=== PATIENT | female | born 1995 | race African-American/Black ===

== ENCOUNTER 2018-01-21 23:22 | Emergency (ER) | payer BC, OTHER, SELFPAY | END 2018-01-22 01:06 | disposition home or self-care (01) | LOC: ERS 23:22 | DX: L30.9 Dermatitis, unspecified (principal) | CPT/HCPCS: 99282 ==

== ENCOUNTER 2018-01-26 10:58 | Emergency (ER) | payer SELFPAY | END 2018-01-26 12:21 | disposition home or self-care (01) | LOC: ERS 10:58 | DX: R21 Rash and other nonspecific skin eruption (principal); Z79.899 Other long term (current) drug therapy | CPT/HCPCS: 99282 ==

== ENCOUNTER 2018-06-09 13:56 | Emergency (ER) | payer SELFPAY ==
[2018-06-09] MEDS ORDERED: Proparacaine 0.5% Opth 15 ML BOT ONE (14:53)
[2018-06-09] MEDS ORDERED: Fluorescein Opthalmic Strip ONE (14:53)
== END 2018-06-09 15:24 | disposition home or self-care (01) ==
LOC: SCSER 13:56
DX: H10.31 Unspecified acute conjunctivitis, right eye (principal); M26.623 Arthralgia of bilateral temporomandibular joint
CPT/HCPCS: 99282

== ENCOUNTER 2019-04-19 18:59 | Emergency (ER) | payer OTHER, SELFPAY ==
[2019-04-19] MEDS ORDERED: HYDROcodone/Acetaminophen 5/325 mg Tablet ONE (21:35)
== END 2019-04-19 21:45 | disposition home or self-care (01) ==
LOC: ERS 18:59
DX: K02.9 Dental caries, unspecified (principal); K05.10 Chronic gingivitis, plaque induced
CPT/HCPCS: 99282

== ENCOUNTER 2019-05-04 19:15 | Inpatient (IN) | payer OTHER ==
--- NOTE | 2019-05-04 17:35 | PDOC.FPROB ---
FMR OB H&P: HPI - History of Present Illness Chief Complaint: eIOL Indentification: 23yo @39.1wks by 20.6wk US History of Present Illness: 23yo @39wks by 20.6wk US presents for eIOL. Patient doing well today. Reports that she feels baby move, denies contractions , vaginal bleeding, gushes of fluid. Denies headaches, vision changes, cp, sob, abdominal pain. Desires epidural during this delivery. Also states that she desires PO cytotec induction rather than vaginal, due to her being uncomfortable with cervical checks. Discussed that po cytotec may not be as effective as vaginal, and patient reports that her first two deliveries were inductions and she had po cytotec for both of those. Patient's last two deliveries were reportedly GBS positive. As current GBS status unknown, discussed with patient the risks and benefits of antibiotics, and patient decided that she would like to be treated with antibiotics during this delivery. Primary Care Physician: Lala Carrion MD PGY-2 FMR OB H&P: Current - Care : 3 Para: 2001 Gestational age: 39.1 Due date: 05/11/19 Dating Criteria: 20.6wk US Total weight gain: 16lb - OB Labs Blood type: B RH: positive Antibody Screen: negative HIV: negative RPR: negative Rubella: immune Gonorrhea: negative Chlamydia: negative Pap Smear: NILM 01/2019 1 hour gtt: 134 A1c: 5.1% GBS: unknown (collected 05/04/19) H&H: 10.3/30.8 - Anatomy Survey Anatomy survey: 20.3wks - Additional Ultrasound Additional: [place] 41.7% on 30wk growth scan FMR OB H&P: History - Past Medical History PMH: Migraines - OB History OB History: July 2017- via induction June 2016- via induction - HOME SPECIALIST History HOME SPECIALIST History: NILM 01/2019. - Surgical History Sx History: Tonsillectomy - Social History Social History: Denies smoking, drinking etoh, using drugs. FMR OB H&P: Medications - Current Home Medications: Medication Instructions Recorded Confirmed Type Vitamin 1 tab PO DAILY 05/05/19 05/05/19 History Allergies/Adverse Reactions: Allergies Allergy/AdvReac Type Severity Reaction Status Date / Time No Known Drug Allergies Allergy Verified 05/15/16 23:10 FMR OB H&P: ROS - Review of Systems General: denies: fever/chills, weight/appetite/sleep changes Eyes: denies: eye pain, vision changes ENT: denies: nasal congestion, sore throat Cardiovascular: denies: chest pain, edema Respiratory: denies: cough, shortness of breath Gastrointestinal: denies: abdominal pain, vomiting, diarrhea Genitourinary (Female): denies: vaginal discharge, vaginal bleeding Musculoskeletal: denies: tenderness, swelling Neurologic: denies: syncope, seizures Integumentary: denies: rash, discoloration FMR OB H&P: Vital Signs - Maternal Vital signs: BP: 122/67 Pulse: 87 - Heart Tones Baseline: 145 Variability: moderate Acceleration: absent Deceleration: absent Category: category 1 [place] contractions every: intermittent FMR OB H&P: Physical Exam - Physical Exam General: NAD, awake, alert and oriented HEENT: MMM, no scleral icterus Neck: supple, FROM Chest: non-tender to palpation, no lesions Heart: RRR, normal S1/S2 General: CTAB, no respiratory distress Abdomen: soft, gravid, fundus(cm), non-tender, bowel sound present Musculoskeletal: pulses present, FROM in all four extremities Neurological: sensation to pain,touch and proprioception grossly normal, no focal deficit Skin: no rash, good tugor Lymphatic: no unusual bruising or bleeding, no purpura Psychiatric: intact recent and remote memory, good judgement and insight - Pelvic Exam Vulva: normal hair distribution, no blood SVE: closed/thick/high FMR OB H&P: A/P - Problem List (1) Current Visit: Yes Status: Acute Qualifiers: Weeks of gestation: 39 weeks Qualified Code(s): Z3A.39 - 39 weeks gestation of (2) Anemia affecting Current Visit: Yes Status: Acute Code(s): O99.019 - ANEMIA COMPLICATING , UNSPECIFIED TRIMESTER Disposition: 23yo @39wks by 20.6wk US presents for eIOL. sIUP - SVE closed/thick/high - FHTs: reactive strip, baseline 145 - VSS - U/S demonstrates baby has cephalic presentation - IOL with PO cytotec per patient preference - GBS abx ppx closer to active labor - Continue serial cervical checks Anemia of Pregnacy - Continue iron Dispo: admitted to L&D for eIOL at 39.1wga Discussion: Date/Time: 05/04/19 4844 This H&P was discussed with [Regulo] who agree with the above documentation and plan. Addendum - Attending - Attending Attestation Date/Time: 05/05/19 9993 I personally evaluated the patient and discussed the management with Dr. Carrion. I agree with the History, Examination, Assessment and Plan documented above with any addition or exceptions noted below.
[~2019-05-04 19:15] MED LIST: Lidocaine 1% (PF) 30 ML VIAL SC PRN; NS / Oxytocin 40 units/1000ml 1,000 ML IV PRN; Ondansetron PF 4 MG/2 ML Vial IVP PRN; Promethazine HCl 25 MG/ML VIAL IM PRN; hydrALAZINE 20 MG/ML VIAL SLOW IVP PRN
[2019-05-05] MEDS ORDERED: Bupivacaine HCl 0.5%/Epinephrine 1:200,000/PF 30 ml Vial ONE (09:00)
[2019-05-05] MEDS ORDERED: Lidocaine 2% MPF 10 ML AMP (For Epidural Use) ONE (09:00)
[2019-05-05 10:38] VITALS: BMI 36.7
[2019-05-05] MEDS: Lactated Ringer's 1,000 ML IV SCH ×2 (10:45→12:44)
[2019-05-05 10:55] LABS: Hemoglobin 10.7 g/dL (12.0-16.0); Mean Corpuscular HGB CONC 34.5 g/dL (32.0-36.0); Mean Corpuscular Hemoglobin 30.2 pg (27.0-31.0); Mean Corpuscular Volume 87.5 fL (78.0-98.0); Mean Platelet Volume 9.3 fL (7.4-10.4); Platelet Count 198 thou/uL (130-400); RBC Distribution Width 12.5 % (11.5-14.5); Red Blood Cell (RBC) Count 3.55 mill/uL (4.20-5.40); White Blood Cell (WBC) Count 5.3 thou/uL (4.8-10.8)
[2019-05-05 11:41] LABS: Hep B Surf Ag Non-Reactive S/CO (NonReactive); Syphilis Antibody Nonreactive (Nonreactive)
[2019-05-05] MEDS: Misoprostol 100 MCG TAB PO SCH (13:04)
[2019-05-05] MEDS: Misoprostol 100 MCG TAB VAG SCH (16:29)
[2019-05-05] MEDS ORDERED: Butorphanol Tartrate 1 MG/ML VIAL ONE (19:24)
[2019-05-05] MEDS: Butorphanol Tartrate 1 MG/ML VIAL SLOW IVP PRN (22:07)
--- NOTE | 2019-05-05 22:19 | PDOC.LDPN ---
Labor & Delivery Progress Note - Subjective Subjective: painful contractions - Objective Vital signs reviewed and normal: yes General: NAD, breathing through contractions Uterine fundus: palpable contractions SVE: 0/0/-3 @ 2215 FHT: category 1, variability present [place] contractions every: 1-2 min - Assessment (1) Term Code(s): Z34.90 - ENCNTR FOR SUPRVSN OF NORMAL , UNSP, UNSP TRIMESTER Current Visit: Yes Status: Acute Plan: continue plan of care Addendum - Attending - Attending Attestation Date/Time: 05/05/19 2543 I personally discussed the management with Dr. Hayes I agree with the History, Examination, Assessment and Plan documented above with any addition or exceptions noted below. 23 yo female at 39.1 wks by 20.6 wk sono here for eIOL HD#1 Patient with frequent and painful contractions after miso x1. FHT cat 1 tracing. Will continue to monitor closely. No intervention at this time. Repeat exam prn or in 2 to 4 hours. Cervical ripening as needed and as indicated. Juve
[2019-05-06] MEDS: Butorphanol Tartrate 1 MG/ML VIAL SLOW IVP PRN ×3 (01:06→08:28)
[2019-05-06] MEDS: Penicillin G Potassium 5 MILL.UNITS in Sodium Chloride 0.9% 100 ML IVPB SCH ×2 (03:25→05:52)
[2019-05-06] MEDS: Misoprostol 100 MCG TAB PO SCH ×5 (03:25→19:11)
[2019-05-06] MEDS: Misoprostol 100 MCG TAB VAG SCH ×4 (03:25→19:11)
[2019-05-06] MEDS: Penicillin G 2.5 MILL.units 2.5 MILL.UNITS in Premix Bag 1 BAG IVPB SCH ×5 (03:26→19:10)
[2019-05-06] MEDS: Lactated Ringer's 1,000 ML IV SCH ×3 (03:26→19:11)
--- NOTE | 2019-05-06 03:37 | PDOC.LDPN ---
Labor & Delivery Progress Note - Subjective Subjective: comfortable - Objective General: NAD Dilation: 0 Effacement: 0% Station: -3 FHT: category 1 [place] contractions every: 4-5 - Assessment (1) Term Code(s): Z34.90 - ENCNTR FOR SUPRVSN OF NORMAL , UNSP, UNSP TRIMESTER Current Visit: Yes Status: Acute Plan: continue plan of care -: 23 y/o @ 39.1 WGA here for eIOL -Pt contractions have spaced out -Will repeat PO cytotec 50 -stadol as needed for pain -LR @ 125 Addendum - Attending - Attending Attestation Date/Time: 05/06/19 3290 I personally discussed the management with Dr. Carmen I agree with the History, Examination, Assessment and Plan documented above with any addition or exceptions noted below. 23 yo female at 39.2 wks by 20.6 wk sono here for eIOL HD#2 Patient doing well. No LOF or VB. 2nd miso placed. FHT cat 1 Continue current care. Repeat exam in 4 hours. Juve
--- NOTE | 2019-05-06 10:18 | PDOC.LDPN ---
Labor & Delivery Progress Note - Subjective Subjective: comfortable - Objective Vital signs reviewed and normal: yes General: NAD, resting, breathing through contractions Uterine fundus: non tender SVE: By Cinthia Dilation: 3 Effacement: 25% Station: -3 FHT: category 1, variability present [place] contractions every: q3 min - Assessment (1) Anemia affecting Code(s): O99.019 - ANEMIA COMPLICATING , UNSPECIFIED TRIMESTER Current Visit: Yes Status: Acute (2) Term Code(s): Z34.90 - ENCNTR FOR SUPRVSN OF NORMAL , UNSP, UNSP TRIMESTER Current Visit: Yes Status: Acute Plan: continue plan of care -: 23 y/o at 39.2 wks presents for eIOL TIUP - eIOL: R/B/A discussed prior to initiation of induction - PO cytotec x2 and PV cytotec x1. PO cytotec last given at 3:30 AM - Patient opting to get epidural, then plan to place balloon after conversation with patient - Category I strip Anemia of - H/H .02/01 on admission Addendum - Attending - Attending Attestation Date/Time: 05/06/19 2560 I personally evaluated the patient and discussed the management with Dr. Vicente I agree with the History, Examination, Assessment and Plan documented above with any addition or exceptions noted below. 23 yo female at 39.2 wks by 20.6 wk sono here for eIOL HD#2 Patient now with increasing pain. Contractions every 4 mins. Intact. No VB. Discussed induction agents and pain control along with R/B/A to all. FHT cat 1. Vertex. EFW 8 lbs. Maternal VS reviewed. SVE now 3 cm. 1. eIOL: recorded reviewed. Vertex. Patient considering epidural for pain control. Minimal relief with IV opiates. Discussed risk for /fetus with continued opiate use. Patient considering balloon placement but would like epidural first. 2. GBS unknown: Will call to see if [facility] has any results. 3. Anemia of Continue monitor. Will place balloon and start pitocin once patient's pain improved. Juve
[2019-05-06] MEDS ORDERED: Fentanyl 4 mcg/Bup 0.1% Cadd 100 ML ONE (10:43)
[2019-05-06] MEDS ORDERED: FLU VACC QS2019-20(6MOS UP)/PF 60 MCG/0.5 ML SYRINGE IM ONE (12:00)
[2019-05-06] MEDS ORDERED: NS w/ Oxytocin 10 units 500 ML ONE (12:37)
--- NOTE | 2019-05-06 12:40 | PDOC.LDPN ---
Labor & Delivery Progress Note - Subjective Subjective: comfortable - Objective Vital signs reviewed and normal: yes General: NAD, resting Uterine fundus: non tender SVE: at 12:30 by Cinthia Dilation: 4 Effacement: 50% Station: -2 FHT: category 1, variability present [place] contractions every: q3-5 min - Assessment (1) Anemia affecting Code(s): O99.019 - ANEMIA COMPLICATING , UNSPECIFIED TRIMESTER Current Visit: Yes Status: Acute (2) Term Code(s): Z34.90 - ENCNTR FOR SUPRVSN OF NORMAL , UNSP, UNSP TRIMESTER Current Visit: Yes Status: Acute Plan: continue plan of care, labor augmentation, pitocin for augmentation -: 23 y/o at 39.2 wks presents for eIOL TIUP - eIOL: R/B/A discussed prior to initiation of induction - PO cytotec x2 and PV cytotec x1. PO cytotec last given at 3:30 AM - Checked patient at 12:30 PM prior to balloon placement. Patient /-2 with bulging bag. - Will augment with pitocin and recheck in 2 hours - Plan for AROM at next check Anemia of - H/H 10.02/01 on admission Addendum - Attending - Attending Attestation Date/Time: 05/06/19 1330 I personally evaluated the patient and discussed the management with Dr. Vicente I agree with the History, Examination, Assessment and Plan documented above with any addition or exceptions noted below. 23 yo female at 39.2 wks by 20.6 wk sono here for eIOL HD#2 Patient now comfortable with epidural. No LOF or VB. FHT cat 1. Vertex. EFW 8 lbs. Maternal VS reviewed. SVE now 4 cm. 1. eIOL: recorded reviewed. Vertex. Miso x 3. Now has epidural. Dilated to 4 cm. No balloon needed. Will start pitocin for augmentation. Ctx now 5 to 6 mins. 2. GBS unknown: Still awaiting results from [facility]. No risk for ppx at this time. 3. Anemia of Doing well. Continue current care. Juve
[2019-05-06] MEDS ORDERED: NS w/ Oxytocin 10 units 500 ML IV SCH (12:45)
--- NOTE | 2019-05-06 15:00 | PDOC.LDPN ---
Labor & Delivery Progress Note - Subjective Subjective: comfortable - Objective Vital signs reviewed and normal: yes General: NAD, resting, breathing through contractions Uterine fundus: non tender SVE: at 1445 by Samy Dilation: 5 Effacement: 75% Station: -1 FHT: category 1, variability present [place] contractions every: q2-3 min AROM: clear fluid Plan: continue plan of care, labor augmentation, pitocin for augmentation -: 23 y/o at 39.2 wks presents for eIOL TIUP - eIOL: R/B/A discussed prior to initiation of induction - PO cytotec x2 and PV cytotec x1. PO cytotec last given at 3:30 AM - Checked patient at 2:45 PM. Patient /-2 with bulging bag. - Will augment with pitocin, currently set at 8, and recheck in 2 hours - AROM performed with return of clear fluid, recheck now /-1 Anemia of - H/H 10.7 on admission Addendum - Attending - Attending Attestation Date/Time: 05/06/19 6412 I personally evaluated the patient and discussed the management with Dr. Vicente and Dr. Pablo I agree with the History, Examination, Assessment and Plan documented above with any addition or exceptions noted below. 23 yo female at 39.2 wks by 20.6 wk sono here for eIOL HD#2 Continues to do well. FHT cat 1. Vertex. EFW 8 lbs. Maternal VS reviewed. AROM with clear fluid. Now 5 cm. 1. eIOL: recorded reviewed. Vertex. Miso x 3. Epidural in place. On pit per protocol. Arom. 2. GBS unknown: Results will not be ready until Wednesday. Will follow up with [facility]. Patient requested treatment even though low risk. 3. Anemia of Doing well. Continue current care. Juve
[2019-05-06] MEDS ORDERED: Milk Of Magnesia 30 ML UDCUP PO PRN (18:28)
[2019-05-06] MEDS ORDERED: NS / Oxytocin 40 units/1000ml 1,000 ML IV SCH (18:28)
[2019-05-06] MEDS ORDERED: Ondansetron PF 4 MG/2 ML Vial IVP PRN (18:28)
[2019-05-06] MEDS ORDERED: Polyethylene Glycol 3350 17 GM Packet PO PRN (18:28)
[2019-05-06] MEDS ORDERED: hydrALAZINE 20 MG/ML VIAL SLOW IVP PRN (18:28)
[2019-05-06] MEDS ORDERED: Bisacodyl 10 MG SUPP PR PRN (18:28)
[2019-05-06] MEDS ORDERED: Lanolin Ointment 7 GM TUBE TOP PRN (18:28)
--- NOTE | 2019-05-06 18:54 | PDOC.OPDEL ---
OB Operative/Delivery Note Delivery Dr/Surgeon: Cinthia Pablo Bray Pre-Delivery Diagnosis: elective induction (cytotec) Procedure/Post Delivery Dx: spontaneous vaginal delivery Weeks gestation: 39 Anesthesia: epidural - Additional Findings/Plan Placenta delivered: spontaneous Repaired Obstetrical Laceration: none Estimated blood loss: 100 ml Compilations/Other Findings: Delivering Physician: Cinthia Pablo Attending: Cj Procedure: Spontaneous Vaginal Delivery Anesthesia: epidural EBL: 100 ml Pre-op Diagnosis: 1. Term intrauterine in labor 2. Anemia of 3. GBS unknown -- pending at time of delivery Post-op Diagnosis: 1. Term intrauterine , delivered 2. same as above Indications: A 23 y/o female presents to L&D for elective cytotec induction due to term at 39.1 weeks EGA by 20.6 wk U/S. Delivery Note: This is 23 yo F @ 39.1 wks who delivered a viable M at 1718 on 05/06/19. Following an uneventful intrapartum course, a vigorous male was delivered over an intact perineum in the maternal left occipitoanterior position. Anterior Shoulder and then remainder of the body delivered. No nuchal cord. The head was held down and mouth and nares were bulb suctioned. Cord clamped and cut and cord blood collected. Placenta delivered intact in the [place] presentation with a 3 vessel cord noted. Fundal massage was performed and the fundus was firm. The cervix and vagina were inspected and found to be free of lacerations. Infant went to nursery in good condition for routine care. Apgars were 8/9 at 1 & 5 minutes, respectively. Patient tolerated delivery well and went to after routine recovery/care. Attending Note: I was present and participated in the above documented procedure. Uncomplicated after an uncomplicated antepartum course. Male delivered in OA positioning. No laceration. Mild grunting shortly after delivery requiring DeLee suctioning. No supplemental O2 needed. APGARs 8/9. wt 3395g. QBL 100 mL. Mother and routine pp care. ABrayMD Post delivery plan: routine recovery
[2019-05-06] MEDS: Docusate Calcium (SURFAK) 240 MG CAP PO SCH (21:26)
[2019-05-06] MEDS: Ibuprofen 800 MG TAB PO SCH (21:26)
[2019-05-07] MEDS ORDERED: Adacel (T-DAP) 0.5 ML SYRINGE IM ONE (09:00)
[2019-05-07] MEDS: Ibuprofen 800 MG TAB PO SCH ×3 (09:03→21:31)
[2019-05-07] MEDS: Ferrous Sulfate 325 MG TAB PO SCH ×2 (09:04→13:27)
[2019-05-07] MEDS: Docusate Calcium (SURFAK) 240 MG CAP PO SCH ×2 (09:04→21:31)
[2019-05-07] MEDS: Prenatal Vitamin 1 TAB PO SCH (09:04)
--- NOTE | 2019-05-07 09:57 | PDOC.PP ---
Post Progress Note Post Day #: 1 Subjective: Feeling well. Pain is controlled with medications. Expected amt of lochia. Ambulating, urinating, tolerating PO. PO intake tolerated: yes Ambulation: yes Vital Signs (12 hours) Temp Pulse Resp BP BP 05/07/19 04:46 97.8 F 81 16 125/77 05/06/19 23:57 97.8 F 67 18 128/82 Weight Weight 97.069 kg - Physical Examination General: NAD Cardiovascular: no m/r/g, RRR Respiratory: clear to auscultation bilaterally, non-labored breathing Abdominal: + bowel sounds, appropriately TTP Fundus firm & at: below umbilicus Neurological: no gross focal deficits Psychiatric: A&Ox3, normal affect Result Diagrams: 05/05/19 10:42 Additional Labs: Post Labs Blood Type B POSITIVE 05/05/19 10:42 Hep Bs Antigen Non-Reactive S/CO (NonReactive) 05/05/19 10:42 (1) Status: Acute Qualifiers: Weeks of gestation: 39 weeks Qualified Code(s): Z3A.39 - 39 weeks gestation of (2) Anemia affecting Code(s): O99.019 - ANEMIA COMPLICATING , UNSPECIFIED TRIMESTER Status : Acute - Assessment/Plan 23yo now delivered TAGA male at 39.2wks via eIOL s/p - PPD #1 - Meeting PP milestones - Continue routine PP care Anemia of - H/H 10.02/01 on admission GBS unknown - Was treated prior to delivery Lala Carrion MD PGY-2 Addendum - Attending - Attending Attestation Date/Time: 05/07/19 1044 I personally evaluated the patient and discussed the management with Dr. Carrion and Dr. Vicente I agree with the History, Examination, Assessment and Plan documented above with any addition or exceptions noted below. 23 yo now female s/p uncomplicated on 05/06/19 at 1718 HD#3 PPD#1 Patient doing well this morning. No acute events overnight. Lochia mild. Pain controlled. Voiding well. VS reviewed. NAD. RRR. no murmurs CTAB. no c/r/w Fundus firm and nontender below umbilicus FROM no c/c/e 1. s/p : Continue routine pp care. Encourage ambulation. 2. GBS unknown: Results Wednesday. 3. Anemia of : Minimal blood loss with delivery. No iron needed. 4. BMI 36: Encourage lifesyle modifications. 5. Contraception: Unsure. ABrayMD
[2019-05-08] MEDS: Ibuprofen 800 MG TAB PO SCH (06:41)
--- NOTE | 2019-05-08 07:34 | PDOC.PP ---
Post Progress Note Post Day #: 2 Subjective: No overnight events. Pain is well controlled with Motrin. Ambulating and tolerating diet. PO intake tolerated: yes Flatus: yes Ambulation: yes Vital Signs (12 hours) Temp Pulse Resp BP Pulse Ox 05/07/19 19:50 98.3 F 71 20 122/75 100 Weight Weight 97.069 kg - Physical Examination General: NAD Cardiovascular: no m/r/g, RRR Respiratory: clear to auscultation bilaterally, non-labored breathing Abdominal: + bowel sounds, appropriately TTP Fundus firm & at: below umbilicus Neurological: no gross focal deficits Psychiatric: A&Ox3, normal affect Result Diagrams: 05/05/19 10:42 Additional Labs: Post Labs Blood Type B POSITIVE 05/05/19 10:42 Hep Bs Antigen Non-Reactive S/CO (NonReactive) 05/05/19 10:42 (1) Status: Acute Qualifiers: Weeks of gestation: 39 weeks Qualified Code(s): Z3A.39 - 39 weeks gestation of (2) Anemia affecting Code(s): O99.019 - ANEMIA COMPLICATING , UNSPECIFIED TRIMESTER Status : Acute - Assessment/Plan 23yo now delivered JENAA male at 39.2wks via eIOL s/p - PPD #2 - Meeting PP milestones - Continue routine PP care - Nuvaring vs Mirena IUD for PP contraception - Likely discharge home today Anemia of - H/H 10.7/31 on admission - Minimal blood loss with delivery GBS unknown - Was treated prior to delivery - Will result today Lala Carrion MD PGY-2 Addendum - Attending - Attending Attestation Date/Time: 05/08/19 0808 I personally evaluated the patient and discussed the management with Dr. Carrion I agree with the History, Examination, Assessment and Plan documented above with any addition or exceptions noted below. 23 yo now female s/p uncomplicated on 05/06/19 at 1718 HD#4 PPD#2 Remains well. No acute events. Lochia minimal. Voiding well. Would like to pump breast milk. Plans to go back to work soon so does not want to breast feed. VS reviewed. NAD. Fundus firm and nontender below umbilicus FROM no c/c/e 1. s/p : Meeting milestones. Ok to d/c to home. Follow up with PCP in 2 wks. 2. GBS positive. Contacted [facility] for results. Treated adequately intra- per maternal request. 3. Anemia of : Minimal blood loss with delivery. No iron needed. 4. BMI 36: Encourage lifesyle modifications. 5. Contraception: Unsure. Ok to d/c to home. Followup in 2 wks. Juve
[2019-05-08 07:52] VITALS: BP 139/80; TEMP 98.2
[2019-05-08] MEDS: Docusate Calcium (SURFAK) 240 MG CAP PO SCH (08:21)
[2019-05-08] MEDS: Prenatal Vitamin 1 TAB PO SCH (08:21)
[2019-05-08] MEDS: Ferrous Sulfate 325 MG TAB PO SCH (08:22)
--- NOTE | 2019-05-10 07:25 | PQF ---
Ailyn John [id number] Emperatriz Corona MD [id number] CLINICAL DOCUMENTATION CLARIFICATION FORM: POST DISCHARGE Addendum to original discharge summary date: ____ Late entry note date: __ DATE: 05/05/2019 ATTN : Emperatriz Corona MD Please exercise your independent, professional judgment in responding to the clarification form. Clinical indicators are provided on the bottom of this form for your review Please check appropriate box(s): [ ] Acute blood loss anemia [ ] Post-op anemia related to acute blood loss [ ] Anemia: [ ] Aplastic [ ] Nutritional [ ] Drug induced (specify) ___ [ ] Hemolytic [ ] Hereditary [ ] Acquired [ ] Autoimmune [ ] Non-autoimmune [ ] Enzyme disorder [ ] Chronic Anemia: [ ] Blood loss [ ] Hemolytic [ ] Simple [ ] Due to Vitamin B12 Deficiency [ ] Other [ ] Anemia of Chronic Disease (please specify) [ x ] Other diagnosis __anemia related to pregnancy__ [ ] Unable to determine For continuity of documentation, please document condition throughout progress notes and discharge summary. Thank You. CLINICAL INDICATORS - SIGNS / SYMPTOMS / LABS - Anemia of - OP report, 05/06, Emperatriz Corona MD - QBL: 100ml -OP report, 05/06, Emperatriz Corona MD - elective induction( Cytotec)-OP report, 05/06, Emperatriz Corona MD - Hgb: 10.7L, Hct: 31.0L Laboratory record, 05/05 - Minimal blood loss with delivery- PN, 05/07, Emperatriz Corona MD RISK FACTORS - Spontaneous vaginal delivery-OP report, 05/06, Emperatriz Corona MD - Week of gestation 39- OP report, 05/06, Emperatriz Corona MD TREATMENTS: Ferrous sulfate PO Home Meds-SEP-04/07 (This form is maintained as a part of the permanent medical record) 2014 [employer], [employer]. All Rights Reserved Liam Mcmullen [not provided] [not provided] MTDD
--- NOTE | 2019-05-10 07:31 | PQF ---
Ailyn John Amanda MD [id number] CLINICAL DOCUMENTATION CLARIFICATION FORM: POST DISCHARGE Addendum to original discharge summary date: ____ Late entry note date: __ DATE: 05/09/2019 ATTN:Emperatriz Corona MD Please exercise your independent, professional judgment in responding to the clarification form. Clinical indicators are provided on the bottom of this form for your review Please check appropriate box(s): [ ] Post hemorrhage [ ] Intrapartum hemorrhage [ x ] Expected blood loss [ ] Other diagnosis [ ] Unable to determine CLINICAL INDICATORS - SIGNS / SYMPTOMS / LABS - Minimal blood loss with delivery- PN, 05/07, Emperatriz Corona MD - QBL: 100ml -OP report, 05/06, Emperatriz Corona MD - elective induction( Cytotec)-OP report, 05/06, Emperatriz Corona MD - Hgb: 10.7L, Hct: 31.0L Laboratory record, 05/05 - Mild gurting shortly after delivery-OP report, 05/06, Emperatriz Corona MD RISK FACTORS - Spontaneous vaginal delivery-OP report, 05/06, Emperatriz Corona MD - Week of gestation 39- OP report, 05/06, Emperatriz Corona MD TREATMENT: - Delee suctioning-OP report, 05/06, Emperatriz Corona MD - Ferrous sulfate PO Home Meds-SEP-04/07 (This form is maintained as a part of the permanent medical record) 2014 [employer], [employer]. All Rights Reserved Laim Mcmullen [not provided] [not provided] ABRAHAND
== END 2019-05-08 12:20 | disposition home or self-care (01) | DRG 807 ==
LOC: EEVIPCON 05-05 09:53 → L&D 05-05 09:53 → 3SW 05-07 10:59
PROVIDERS: ADMIT Emergency Medicine; ATTEND Emergency Medicine
PROC: 10E0XZZ Delivery of Products of Conception, External Approach (ICD-10-PCS; principal; 2019-05-06)
PROC: 3E033VJ Introduction of Other Hormone into Peripheral Vein, Percutaneous Approach (ICD-10-PCS; 2019-05-06)
PROC: 10907ZC Drainage of Amniotic Fluid, Therapeutic from Products of Conception, Via Natural or Artificial Opening (ICD-10-PCS; 2019-05-06)
DX: O99.02 Anemia complicating childbirth (principal); Z37.0 Single live birth; Z3A.39 39 weeks gestation of pregnancy; D64.9 Anemia, unspecified
CPT/HCPCS: 36415; 51702; 85027; 86780; 86850; 86900; 86901; 87340; J0595; J0670; J2001; J2540; J2590; J3490

== ENCOUNTER 2020-01-21 23:14 | Emergency (ER) | payer OTHER, SELFPAY ==
[2020-01-22] MEDS ORDERED: Ketorolac Tromethamine 30 MG/ML VIAL ONE (00:07)
== END 2020-01-22 00:15 | disposition home or self-care (01) ==
LOC: ERS 23:14
DX: K05.10 Chronic gingivitis, plaque induced (principal)
CPT/HCPCS: 96372; 99282; J1885

== ENCOUNTER 2020-05-21 15:24 | Emergency (ER) | payer SELFPAY | END 2020-05-21 16:25 | disposition left against medical advice (07) | LOC: ERS 15:24 | DX: Z53.21 Procedure and treatment not carried out due to patient leaving prior to being seen by health care provider (principal) ==

== ENCOUNTER 2020-06-07 13:07 | Emergency (ER) | payer SELFPAY ==
[2020-06-08] MEDS ORDERED: Ondansetron PF 4 MG/2 ML Vial ONE (01:42)
[2020-06-08] MEDS ORDERED: Fentanyl 100 MCG/2 ML VIAL ONE (01:42)
== END 2020-06-07 13:29 | disposition home or self-care (01) ==
LOC: ERS 13:07
DX: K08.89 Other specified disorders of teeth and supporting structures (principal)
CPT/HCPCS: 99281

== ENCOUNTER 2021-12-02 16:43 | Emergency (ER) | payer OTHER | END 2021-12-02 17:49 | disposition home or self-care (01) | LOC: ERS 16:43 | DX: Z20.2 Contact with and (suspected) exposure to infections with a predominantly sexual mode of transmission (principal) | CPT/HCPCS: 99283 ==

== ENCOUNTER 2021-12-31 17:10 | Emergency (ER) | payer OTHER ==
[2021-12-31 18:03] LABS: Bilirubin Negative (Negative); Blood, Urine 1+ (Negative); Clarity Turbid (Clear); Glucose, Urine (Dipstick) Normal (Negative); Ketone, Urine Negative (Negative); Leukocyte 500 Leu/uL (Negative); Nitrite Negative (Negative); Protein, Urine (Dipstick) 30 mg/dL (Neg-Trace); Specific Gravity, Urine 1.009 (1.002-1.036); Squamous Epithelial 0-3 HPF (0-3); Urobilinogen Normal mg/dL (Less than 2); Yeast-Budding 2+ HPF (None Seen); pH, Urine 5.5 (5.0-9.0)
[2021-12-31 18:15] LABS: Bacteria/HPF 1+ HPF (None Seen)
[2021-12-31 18:19] LABS: #Lymphocytes 0.7 thou/uL (1.20-3.40); #Monocytes 0.2 thou/uL (0.11-0.59); %Basophils 0.1 % (0.0-1.0); %Eosinophils 0.7 % (0.0-10.0); %Lymphocytes 10.4 % (21.0-51.0); %Monocytes 3.4 % (0.0-10.0); %Neutrophils 85.5 % (42.0-75.0); Hemoglobin 11.3 g/dL (12.0-16.0); Mean Corpuscular HGB CONC 32.6 g/dL (32.0-36.0); Mean Corpuscular Hemoglobin 30.3 pg (27.0-31.0); Mean Corpuscular Volume 92.9 fL (78.0-98.0); Mean Platelet Volume 8.6 fL (7.4-10.4); Platelet Count 194 thou/uL (130-400); RBC Distribution Width 12.1 % (11.5-14.5); Red Blood Cell (RBC) Count 3.74 mill/uL (4.20-5.40)
[2021-12-31 18:40] LABS: ALT (SGPT) 17 U/L (8-55); AST (SGOT) 18 U/L (5-34); Albumin 3.9 g/dL (3.5-5.0); Alkaline Phosphatase 60 U/L (40-110); Anion Gap 13 mmol/L (10-20); BUN (Urea Nitrogen) 11 mg/dL (7.0-18.7); Bilirubin, Total 0.3 mg/dL (0.2-1.2); Calc. Creatinine Clearance 0 mL/min (70-130); Calcium 8.7 mg/dL (7.8-10.44); Carbon Dioxide 24 mmol/L (22-29); Chloride 108 mmol/L (98-107); Estimated GFR 113; Globulin 2.9 g/dL (2.4-3.5); Glucose 119 mg/dL (70-105); Potassium 3.4 mmol/L (3.5-5.1); Protein, Total 6.8 g/dL (6.0-8.3); Sodium 142 mmol/L (136-145)
[2021-12-31] MEDS ORDERED: Acetaminophen 500 MG TAB ONE (20:05)
[2021-12-31] MEDS ORDERED: cefTRIAXone\\ROCEPHIN 1 GM VIAL ONE (20:50)
== END 2021-12-31 23:25 | disposition home or self-care (01) ==
LOC: ERS 17:10
DX: N12 Tubulo-interstitial nephritis, not specified as acute or chronic (principal); Z20.822 Contact with and (suspected) exposure to COVID-19
CPT/HCPCS: 36415; 71045; 80053; 81003; 81015; 83605; 85025; 87040; 87077; 87149; 87186; 96374; J0696; U0003; U0005

== ENCOUNTER 2022-09-05 11:09 | Emergency (ER) | payer OTHER ==
[2022-09-05] MEDS ORDERED: Ondansetron ODT 4 MG TAB ONE (11:58)
[2022-09-05 12:23] LABS: Bacteria/HPF None Seen HPF (None Seen); Bilirubin Negative (Negative); Blood, Urine 1+ (Negative); Clarity Clear (Clear); Glucose, Urine (Dipstick) Normal (Negative); Ketone, Urine Negative (Negative); Leukocyte Negative Leu/uL (Negative); Nitrite Negative (Negative); Pregnancy Test - Urine (BHCG) Negative (Negative); Pregu Control Background? CLEAR/WHITE (CLR/WHITE); Pregu Control Bar Appear? YES (CONTROL BAR); Protein, Urine (Dipstick) 20 mg/dL (Neg-Trace); Specific Gravity 1.032 (1.002-1.036); Specific Gravity, Urine 1.032 (1.002-1.036); WBC/HPF 0-3 HPF (0-3)
== END 2022-09-05 12:30 | disposition home or self-care (01) ==
LOC: ERS 11:09
DX: R10.9 Unspecified abdominal pain (principal); R31.29 Other microscopic hematuria
CPT/HCPCS: 81003; 81015; 81025; 99284; Q0162

== ENCOUNTER 2023-06-12 15:24 | Emergency (ER) | payer OTHER, SELFPAY ==
[2023-06-12] MEDS ORDERED: Acetaminophen 500 MG TAB ONE (16:30)
[2023-06-12 18:56] LABS: Bacteria/HPF 3+ HPF (None Seen); Bilirubin Negative (Negative); Blood, Urine Negative (Negative); CAUTI Indications for Culture Dysuria,urgency,freq; Clarity Turbid (Clear); Glucose, Urine (Dipstick) Normal (Negative); Ketone, Urine 10 mg/dL (Negative); Leukocyte 75 Leu/uL (Negative); Mucous/LPF Rare LPF (<2+); Nitrite Negative (Negative); Protein, Urine (Dipstick) 30 mg/dL (Neg-Trace); RBC/HPF 0-3 HPF (0-3); Specific Gravity, Urine 1.032 (1.002-1.036); Urobilinogen 3 mg/dL (Less than 2)
[2023-06-12 18:57] LABS: Pregnancy Test - Urine (BHCG) Negative (Negative); Pregu Control Background? CLEAR/WHITE (CLR/WHITE); Pregu Control Bar Appear? YES (CONTROL BAR); Specific Gravity 1.032 (1.002-1.036); Urine Culture Reflex Yes Yes
== END 2023-06-12 20:06 | disposition home or self-care (01) ==
LOC: ERS 15:24
DX: R55 Syncope and collapse (principal); N39.0 Urinary tract infection, site not specified
CPT/HCPCS: 81001; 81025; 87077; 87086; 99284

== ENCOUNTER 2023-06-19 10:54 | Emergency (ER) | payer SELFPAY ==
[2023-06-19] MEDS ORDERED: Lidocaine 1% w/Epinephrine 1:100K 20 ML VIAL ONE (11:16)
[2023-06-19] MEDS ORDERED: Boostrix 0.5 ML (Tdap) VIAL (>/=7 yrs of age) ONE (11:17)
[2023-06-19] MEDS ORDERED: Bacitracin 1 PK ONE (13:08)
== END 2023-06-19 13:44 | disposition home or self-care (01) ==
LOC: ERS 10:54
DX: S81.811A Laceration without foreign body, right lower leg, initial encounter (principal); S61.511A Laceration without foreign body of right wrist, initial encounter; S71.111A Laceration without foreign body, right thigh, initial encounter; S80.811A Abrasion, right lower leg, initial encounter; X00.0XXA Exposure to flames in uncontrolled fire in building or structure, initial encounter; Y92.039 Unspecified place in apartment as the place of occurrence of the external cause
CPT/HCPCS: 12032; 90471; 90715

== ENCOUNTER 2023-06-26 11:58 | Emergency (ER) | payer SELFPAY | END 2023-06-26 12:24 | disposition home or self-care (01) | LOC: ERS 11:58 | DX: S71.111D Laceration without foreign body, right thigh, subsequent encounter (principal); Z48.00 Encounter for change or removal of nonsurgical wound dressing; X58.XXXD Exposure to other specified factors, subsequent encounter | CPT/HCPCS: 99282 ==

== ENCOUNTER 2023-06-29 15:27 | Emergency (ER) | payer SELFPAY | END 2023-06-29 17:55 | disposition home or self-care (01) | LOC: ERS 15:27 | DX: S71.111D Laceration without foreign body, right thigh, subsequent encounter (principal) ==

== ENCOUNTER 2023-12-21 19:20 | Emergency (ER) | payer SELFPAY | END 2023-12-21 21:16 | disposition home or self-care (01) | LOC: ERS 19:20 | DX: R55 Syncope and collapse (principal) | CPT/HCPCS: 99284 ==

== ENCOUNTER 2024-06-02 14:57 | Emergency (ER) | payer SELFPAY | END 2024-06-02 16:51 | disposition home or self-care (01) | LOC: ERS 14:57 | DX: K02.9 Dental caries, unspecified (principal) | CPT/HCPCS: 99282 ==

== ENCOUNTER 2024-08-05 14:29 | Emergency (ER) | payer SELFPAY ==
[2024-08-05 15:06] LABS: #Basophils Less than 0.03 10x3/uL (0.0-0.2); %Basophils 0.2 % (0.0-1.0); %Eosinophils 0.4 % (0.0-10.0); %Monocytes 4.6 % (0.0-10.0); %Neutrophils 68.5 % (42.0-75.0); Hematocrit 35.7 % (36.0-47.0); Hemoglobin 11.9 g/dL (12.0-16.0); Mean Corpuscular HGB CONC 33.3 g/dL (32.0-36.0); Mean Corpuscular Hemoglobin 29.3 pg (27.0-31.0); Mean Corpuscular Volume 87.9 fL (78.0-98.0); Mean Platelet Volume 10.3 fL (7.4-10.4); Platelet Count 276 10x3/uL (130-400); RBC Distribution Width 13.2 % (11.5-14.5); Red Blood Cell (RBC) Count 4.06 mill/uL (4.20-5.40)
[2024-08-05 15:22] LABS: ALT (SGPT) 11 U/L (Less than 34); AST (SGOT) 17 U/L (11-34); Albumin 3.4 g/dL (3.1-4.5); Alkaline Phosphatase 47 U/L (40-110); Anion Gap 13 mmol/L (10-20); BUN (Urea Nitrogen) 8 mg/dL (7.0-18.7); Bilirubin, Total 0.2 mg/dL (0.3-1.2); Calc. Creatinine Clearance 0 mL/min (70-130); Calcium 8.4 mg/dL (7.8-10.44); Carbon Dioxide 19 mmol/L (22-29); Chloride 110 mmol/L (98-107); Estimated GFR 123; Globulin 2.5 g/dL (2.4-3.5); Glucose 129 mg/dL (70-105); Lipase 21 U/L (8-78); Potassium 3.8 mmol/L (3.5-5.1); Protein, Total 5.9 g/dL (6.0-8.3); Sodium 138 mmol/L (136-145)
[2024-08-05] MEDS ORDERED: Acetaminophen 500 MG TAB ONE (15:58)
[2024-08-05] MEDS ORDERED: Ondansetron PF 4 MG/2 ML Vial ONE (15:58)
[2024-08-05 17:39] LABS: Pregnancy Test - Urine (BHCG) POSITIVE (Negative)
[2024-08-05 17:40] LABS: Pregu Control Background? CLEAR/WHITE (CLR/WHITE); Pregu Control Bar Appear? YES (CONTROL BAR)
[2024-08-05 17:41] LABS: Bilirubin Negative (Negative); Blood, Urine 3+ (Negative); CAUTI Indications for Culture Pelvic or flank pain; Clarity Clear (Clear); Glucose, Urine (Dipstick) Normal (Negative); Ketone, Urine Negative (Negative); Leukocyte 250 Leu/uL (Negative); Nitrite Negative (Negative); Protein, Urine (Dipstick) Negative (Neg-Trace); RBC/HPF 0-3 HPF (0-3); Squamous Epithelial 0-3 HPF (0-3); Urobilinogen Normal mg/dL (Less than 2)
[2024-08-05 17:42] LABS: Bacteria/HPF Rare-Few HPF (None Seen)
[2024-08-05 17:43] LABS: Urine Culture Reflex No No
[2024-08-05 17:46] LABS: Amphetamine Not Detected (NotDetected); Barbiturates Screen Not Detected (NotDetected); Benzodiazepine Screen Not Detected (NotDetected); Cocaine Metabolite Screen Not Detected (NotDetected); Methadone Not Detected (NotDetected); Methamphetamine Not Detected (NotDetected); Opiate Screen Not Detected (NotDetected); Oxycodone Screen Not Detected (NotDetected); Phencyclidine (PCP) Not Detected (NotDetected); THC/Cannabinoid Screen Detected (NotDetected); Tricyclic Screen Not Detected (NotDetected)
== END 2024-08-05 20:28 | disposition home or self-care (01) ==
LOC: ERS 14:29
DX: R10.30 Lower abdominal pain, unspecified (principal); Z33.1 Pregnant state, incidental
CPT/HCPCS: 36415; 76801; 80053; 80306; 81001; 81025; 83690; 84702; 85025; 96361; 96374; J2405

== ENCOUNTER 2025-05-01 13:23 | Outpatient (CLI) | payer MEDICAID | END 2025-05-01 13:24 | disposition home or self-care (01) | LOC: BICRAD 13:23 | PROVIDERS: ATTEND Nurse Practitioner Family | DX: M79.672 Pain in left foot (principal) ==

== ENCOUNTER 2025-06-27 15:38 | Emergency (ER) | payer MEDICAID, OTHER | END 2025-06-27 16:22 | disposition home or self-care (01) | LOC: ERS 15:38 | DX: S61.214A Laceration without foreign body of right ring finger without damage to nail, initial encounter (principal); W26.8XXA Contact with other sharp object(s), not elsewhere classified, initial encounter | CPT/HCPCS: 12001; 99282 ==